=== PATIENT | male | born 1985 | race Caucasian/White ===

== ENCOUNTER 2019-03-03 10:26 | Emergency (ER) | payer OTHER ==
--- NOTE | 2019-03-03 10:45 | ED Physician Documentation ---
Upper Respiratory Symptoms - HISTORIAN Historian: patient - HPI Chief Complaint: Cough/ Upper Respiratory Additional Information: 33 year old male presents with c/o cough, congestion, sore throat, sinus pressure, wheezing, nasal congestion and headache. Sx's started 4 days ago; family has all been sick. Onset: days ago Duration: constant Context: same sx (family has been ill) Severity: moderate Associated Symptoms: runny nose, sinus pain, sinus drainage, sore throat, productive cough Worsened by Deep Breath: No - ROS CONST/EYES: denies: eye redness, eye itching CVS/RESP: none LYMPH: denies: rash GI/: none NEURO/PSYCH: denies: dizziness MS/SKIN: denies: muscle aches - PAST HX Lung Disease: none PE Risk Factors: none Immunizations: UTD Allergies/Adverse Reactions: Allergies Allergy/AdvReac Type Severity Reaction Status Date / Time Sulfa (Sulfonamide Allergy Intermediate Hives Verified 03/03/19 10:43 Antibiotics) Home Medications: Ambulatory Orders Medication Instructions Recorded NK 06/02/15 - SOCIAL HX Smoking History: non-smoker Alcohol Use: none Drug Use: none - FAMILY HX Family History: none - VITAL SIGNS Vital Signs: Vital Signs Temp Pulse Resp BP Pulse Ox 98.4 F 75 14 148/92 100 03/03/19 10:53 03/03/19 10:53 03/03/19 10:53 03/03/19 10:53 03/03/19 10:53 - REVIEWED ASSESSMENTS Nursing Assessment Reviewed: Yes Vitals Reviewed: Yes ED Results Lab/Radiology - Orders Orders: ED Orders Category Date Time Status Rapid Strep [GRP A STREP SCREEN] Stat Lab 03/03/19 Ordered Upper Respiratory Symptoms - EXAM General Appearance: alert, mild distress EENT: eyes nml inspection, nml ENT inspection, lids & conjunct. nml, PERRL, ear nml, pain over sinuses, maxillary, rhinorrhea, airway nml, pharyngeal erythema Neck: normal inspection, supple Respiratory: no resp. distress, breath sounds nml, speaks full sentences CVS: heart sounds normal, equal pulses Skin: color nml, no rash, warm,dry Extremities: non-tender, normal range of motion Neuro/Psych: oriented x3, neuro intact, mood/affect nml Discharge Clincal Impression: Acute sinus infection Referrals: Primary Doctor,No [Primary Care Provider] - 2 Days Additional Instructions: Take antibiotic; augmentin 875mg by mouth twice a day for 10 days Steroid; Medrol dose pack as directed Albuterol inhaler; 1-2 puffs every 4-6 hours as needed for shortness of breath or wheezing (meds called in to [facility]) Use a humidifier Warm salt water gargles 4 times a day 1 cup of hot tea with tsp of honey will thin secretions Follow up with PCP in one week for re-evaluation Condition: Good Disposition: 01 HOME, SELF-CARE Decision to Admit: NO Decision Time: 13:14
[2019-03-03 11:09] VITALS: BP 148/92
== END 2019-03-03 10:50 | disposition home or self-care (01) ==
LOC: ED 10:26
DX: J01.90 Acute sinusitis, unspecified (principal)
CPT/HCPCS: 87070; 87880; 99282